=== PATIENT | male | born 1950 | race Caucasian/White ===

== ENCOUNTER 2017-01-22 08:25 | Outpatient (CLI) ==
[2015-11-14 13:04] VITALS: BMI 44.1
== END 2017-01-22 08:26 | disposition short-term general hospital (02) ==
LOC: AMBL 08:25
PROVIDERS: ATTEND Internal Medicine Geriatric Medicine
DX: R06.02 Shortness of breath (principal); R60.0 Localized edema; R05 Cough; I49.3 Ventricular premature depolarization; Z99.81 Dependence on supplemental oxygen

== ENCOUNTER 2017-05-30 05:18 | Outpatient (CLI) ==
[2015-11-14 13:04] VITALS: BMI 44.1
== END 2017-05-30 05:19 | disposition short-term general hospital (02) ==
LOC: AMBL 05:18
PROVIDERS: ATTEND Family Medicine
DX: R07.9 Chest pain, unspecified (principal); R42 Dizziness and giddiness; R06.02 Shortness of breath; R53.1 Weakness; R00.0 Tachycardia, unspecified; I95.9 Hypotension, unspecified; E11.9 Type 2 diabetes mellitus without complications; J44.9 Chronic obstructive pulmonary disease, unspecified; I50.9 Heart failure, unspecified; R40.2411 Glasgow coma scale score 13-15, in the field [EMT or ambulance]

== ENCOUNTER 2017-11-13 13:55 | Emergency (ER) | payer OTHER ==
[2017-11-13] MEDS ORDERED: SODIUM CHLORIDE 1,000 ML IV STA (13:58)
[2017-11-13 14:01] VITALS: BP 143/89; TEMP 97.4; BMI 45.8
--- NOTE | 2017-11-13 14:12 | ED.PDOC ---
General ED Provider: Dr. SUSHMA JACOB-ER Chief Complaint: Altered Mental Status Stated Complaint: family brought in for eval of possible cva---unknown last normal--had dysarthric speech and left facial droop and would not move left side Time Seen by Physician: 13:55 Mode of Arrival: Wheelchair Information Source: Family Exam Limitations: No limitations Primary Care Provider: EDISON MCDERMOTT Nursing and Triage Documentation Reviewed and Agree: Yes Does patient meet sepsis criteria?: No System Inflammatory Response Syndrome: Not Applicable Sepsis Protocol: For patient's 13 years and over: Temp is 96.8 and below OR 101 and greater Pulse >90 BPM Resp >20/minute Acutely Altered Mental Status Are patient's symptoms suggestive of a new infection, such as: -Pneumonia -Skin, Soft Tissue -Endocarditis -UTI -Bone, Joint Infection -Implantable Device -Acute Abdominal Infection -Wound Infection -Meningitis -Blood Stream Catheter Infection -Unknown Neurological Complaint Exam - Neurological Deficit Complaint/Exam Patient Complains of: Reports: Muscle weakness Symptom Onset Unknown: Yes Onset: Gradual Symptoms Are: Still present Initial Severity: Mild Current Severity: Moderate Location: Reports: Facial, LUE, LLE Character: Reports: Motor weakness, Paralysis, Sensory loss Aggravating: Reports: None Associated Signs and Symptoms: Reports: Responsiveness Related History: Reports: Anticoagulant therapy (asa and plavix) CVA Risk Factors: Reports: Diabetes, Hypertension SDH Risk Factors: Reports: Anticoagulant use Related Surgical History: Reports: Pacemaker Signs of Trauma: No Reasons for not prescribing IV t-PA: Medical contraindication (unknown last time normal) Differential Diagnoses: CVA, TIA, Intracranial Bleed Quality Indicator For Non-Traumatic Chest Pain/Syncope: EKG Performed Review of Systems - Review Of Systems Constitutional: Reports: No symptoms Eyes: Reports: No symptoms Ears, Nose, Mouth, Throat: Reports: No symptoms Respiratory: Reports: No symptoms Cardiac: Reports: No symptoms GI: Reports: No symptoms : Reports: No symptoms Musculoskeletal: Reports: No symptoms Skin: Reports: No symptoms Neurological: Reports: Cognitive dysfunction, Weakness Endocrine: Reports: No symptoms Hematologic/Lymphatic: Reports: No symptoms All Other Systems: Reviewed and Negative Past Medical History - Past Medical History Previously Healthy: No Endocrine: Reports: DM 2 Cardiovascular: Reports: CAD, Hypertension Respiratory: Reports: None Hematological: Reports: None Gastrointestinal: Reports: None Genitourinary: Reports: None Neuro/Psych: Reports: None Musculoskeletal: Reports: None Cancer: Reports: None - Surgical History General Surgical History: Reports: None, Pacemaker - Family History Family History: Reports: None - Social History Smoking Status: Never smoker Hx Substance Use: No Alcohol Screening: None Physical Exam - Physical Exam Appearance: Well-appearing Eyes: BARBARA ENT: Ears normal, Nose normal, Oropharynx normal Neck: Supple Respiratory: Airway patent, Breath sounds clear, Breath sounds equal, Respirations nonlabored Cardiovascular: RRR GI/: Soft, Nontender, No masses, Bowel sounds normal, No Organomegaly Musculoskeletal: Normal strength, ROM intact, No edema, No calf tenderness Skin: Warm, Dry, Normal color Neurological: Sensation intact, Motor intact, Reflexes intact, Cranial nerves intact, Alert, Oriented Psychiatric: Affect appropriate Interpretation - Radiology Interpretation Radiology Interpretation By: Radiologist Radiology Results: Positive Exam Interpreted: CT Scan - EKG Interpretation Time of EKG #1: 14:14 Rate: Normal Rhythm: Other Ectopy: None [place]: NL ST Segment: Normal Interpretation: fiordaliza segundo Physician Notification - Case Discussed Physician Notified: dr [email or web address] Time of Notification: 15:15 Critical Care Note - Critical Care Note Total Time (mins): 30 Course - Course Hematology/Chemistry: 11/13/17 14:10 11/13/17 14:10 Orders, Labs, Meds: Lab Review 11/13/17 11/13/17 11/13/17 14:10 14:10 14:10 WBC 11.07 H RBC 5.10 Hgb 15.7 Hct 46.4 MCV 91.0 MCH 30.8 MCHC 33.8 RDW Coeff of Valente 13.3 Plt Count 212 Immature Gran % (Auto) 1.3 Neut % (Auto) 64.0 Lymph % (Auto) 21.7 Posey % (Auto) 6.4 Eos % (Auto) 5.4 Baso % (Auto) 1.2 Immature Gran # (Auto) 0.1 Neut # (Auto) 7.1 H Lymph # (Auto) 2.4 Posey # (Auto) 0.7 Eos # (Auto) 0.6 Baso # (Auto) 0.1 PT 9.7 INR 0.97 Sodium 138 Potassium 5.0 Chloride 99 Carbon Dioxide 31 H Anion Gap 13.0 BUN 39 H Creatinine 1.88 H Estimated GFR (MDRD) 36.00 BUN/Creatinine Ratio 20.74 Glucose 215 H Calcium 9.7 Total Bilirubin 0.8 AST 35 ALT 47 Alkaline Phosphatase 109 Total Creatine Kinase 90 Troponin I < 0.012 Total Protein 8.3 H Albumin 4.6 Globulin 3.7 Albumin/Globulin Ratio 1.24 Orders Category Date Time Status EKG-(ED ONLY) Stat CARDIO 11/13/17 13:57 Completed TRANSFER TO OUTSIDE FACILITY .TO [facility] 11/13/17 14:45 Active ([place], [place]) WRITE TRANSFER/SBAR NOTE ONCE CARE 11/13/17 14:45 Active DISCHARGE ASSESSMENT ONCE DISCHARGE 11/13/17 14:45 Active WRITE DISCHARGE NOTE ONCE DISCHARGE 11/13/17 14:45 Active ACCUCHECK (ED) [ED ACCUCHECK ASSESSMENT] .ONCE EMERGENCY 11/13/17 13:57 Active Price Lister [ED PERFORATOR LOADER APPLIED] .ONCE EMERGENCY 11/13/17 13:58 Active ED ACCUCHECK ASSESSMENT .ONCE EMERGENCY 11/13/17 14:02 Active ED IV/MEDIPORT/POWERPORT .ONCE EMERGENCY 11/13/17 13:58 Active CBC W/ AUTO DIFF Stat LAB 11/13/17 14:10 Completed COMPREHENSIVE METABOLIC PANEL Stat LAB 11/13/17 14:10 Completed CREATINE KINASE Stat LAB 11/13/17 14:10 Completed PT WITH INR Stat LAB 11/13/17 14:10 Completed TROPONIN I Stat LAB 11/13/17 14:10 Completed 0.9 % Sodium Chloride [Saline Flush] MEDS 11/13/17 13:58 Ordered 1 syr IVF PRN PRN Sodium Chloride 0.9% [Sodium Chloride] 1,000 ml MEDS 11/13/17 13:58 Active IV 30 mls/hr CT HEAD W/O CONTRAST Stat RADS 11/13/17 13:58 Completed Medications Generic Name Dose Route Start Last Admin Trade Name Freq PRN Reason Stop Dose Admin Sodium Chloride 1,000 mls @ 30 mls/hr 11/13/17 13:58 11/13/17 14:11 Sodium Chloride IV 11/14/17 23:17 30 mls/hr .[id number] STA Administration Sodium Chloride 1 syr 11/13/17 13:58 11/13/17 14:11 Saline Flush IVF 1 syr PRN PRN Administration To flush IV Vital Signs: Temp Pulse Resp BP Pulse Ox 11/13/17 13:55 97.4 F L 75 20 143/89 H 94 L Departure - Departure Time of Disposition: 14:44 Disposition: TSF SHORT-TRM HOSP Discharge Problem: Altered mental status Instructions: Stroke (DC) Condition: Stable Pt referred to PMD for follow-up: Yes IPMP verified?: No Allergies/Adverse Reactions: Allergies Penicillins Adverse Reaction (Verified 11/13/17 14:02) Home Medications: Ambulatory Orders Insulin Glargine,Hum.rec.anlog [Lantus] 50 unit SQ BEDTIME vial 11/21/14 Insulin Lispro [Humalog] 6 unit SQ TID with meals vial 11/21/14 Nifedipine [Nifedical Xl] 60 mg PO DAILY 10/27/15 Amiodarone HCl [Cordarone] 200 mg PO Q8HR 11/13/17 Aspirin [Aspirin Chewable] 81 mg PO DAILYWM 11/13/17 Atorvastatin Calcium [Lipitor] 20 mg PO BEDTIME 11/13/17 Carvedilol [Coreg] 6.25 mg PO BIDWM 11/13/17 Clopidogrel Bisulfate [Plavix] 75 mg PO DAILY 11/13/17 Spironolactone [Aldactone] 50 mg PO DAILY 11/13/17 Torsemide [Demadex] 100 mg PO DAILY 11/13/17 Transfer Form Completed: Yes Disposition Discussed With: Patient, Family
--- NOTE | 2017-11-13 14:23 | CT ---
EXAM: CT of the head without contrast. HISTORY: Speech disturbance. COMPARISON: None. TECHNIQUE: Contiguous axial images at 5 mm intervals were obtained from the base of the skull to the vertex of the calvarium. No contrast was given. FINDINGS: The CSF containing spaces are normal in size and position. There are no extraaxial fluid collections. There is no evidence of an acute intracranial hemorrhage. There are no masses or mass effect. There is a small peripheral hypodensity in the right frontal lobe which has appearance of sub acute or chronic ischemic infarct. There is also a oval shaped hypodensity in the posterior fossa on the right which has appearance of ischemic infarct. Caceres-white differentiation is normal. The verte bral basilar artery appears dilated measuring up to 6 mm. The osseous and extracranial soft tissues are normal. IMPRESSION: 1. No vascular territory infarcts are identified. No acute intracranial hemorrhage. 2. Hypodensities in the right frontal lobe and right posterior fossa have the appearance of a subacu te or chronic ischemic infarcts. These are small areas of hypodensity. Consider follow-up MRI and/o r CT. 3. Enlarged vertebral basilar artery. These findings were faxed to the humerus department on 11/13/2017 at 2:18 p.m.
== END 2017-11-13 15:45 | disposition short-term general hospital (02) ==
LOC: ED 13:55
DX: R41.82 Altered mental status, unspecified (principal); R29.810 Facial weakness; R47.1 Dysarthria and anarthria; E11.9 Type 2 diabetes mellitus without complications; I10 Essential (primary) hypertension; R53.1 Weakness; I25.10 Atherosclerotic heart disease of native coronary artery without angina pectoris; Z95.0 Presence of cardiac pacemaker; Z79.4 Long term (current) use of insulin; Z79.899 Other long term (current) drug therapy
CPT/HCPCS: 36415; 80053; 82550; 82962; 84484; 85025; 85610; 93005; 93010; 99285

== ENCOUNTER 2018-03-29 14:03 | Inpatient (IN) | payer OTHER ==
[2018-03-29 14:59] VITALS: BMI 39.7
[2018-03-29] MEDS ORDERED: ELIQUIS PO SCH (15:30)
[2018-03-29] MEDS ORDERED: LEVETIRACETAM 250 MG PO SCH ×2 (15:30→21:00)
--- NOTE | 2018-03-29 16:16 | RS.OTINEVL ---
Subjective - Patient information Date of Evaluation: 03/29/18 Date of Arrival on Unit: 03/29/18 Admitted From:: Facility Transfer Usual Living Arrangement: Alone Living Arrangement Comments: Pt reports he lives in the basement of his house where he does not have any steps to enter his home. He reports it is setup like an apartment in the basement. He has a shower with a tub/shower. Medical History: CVA/TIA Medical History Comments:: Large CVA with M2 occlusion.Seizure disorder. thrombectomy, slow processing, decreased ambulation, Cardiac dysrhythmia, CHF, CAD, DMII, HTN, obesity, O2 @ night, sleep apnea, Left Rotator cuff surgery Surgical History Comments:: Left rotator cuff surgery, thrombectomy, Subjective Information/ Patient Comments:: Pt reports no pain. Pt reports he does not have seizures. Pt reports he needs a walker. - Level of function Prior to this admission, the patient could do the following:: Independent Selfcare, Independent Ambulation Abilities prior to this admission: Pt reports he completed his self care before he fell at his home. Now he cannot take care of himself. Current Level of Function: Independent Current Equipment Used at Home: STRAIGHT CANE , NEBULIZER, OXYGEN, GLUCOMETER, SHOWER CHAIR Pain Assessment - Pain Pain Score: 0 Interventions - Objective Patient Orientation: Person, Place, Situation Current Interventions: Oxygen Observation: Pt appears tired. Pt is weak and not steady on his feet. Pt would benefit from OT. Interventions - ROM Right Upper Extremity AROM: WFL's Left Upper Extremity AROM: Slight limitation - Strength Right Upper Extremity Strength: Mild Weakness Left Upper Extremity Strength: Mild Weakness - Sensation Right Upper Extremity Sensation: Intact/Normal Left Upper Extremity Sensation: Intact/Normal Balance - Sitting Balance Static Sitting Balance: Fair Dynamic Sitting Balance: Fair - Standing Balance Static Standing Balance: Poor Dynamic Standing Balance: Poor ADL Skills - Self Feeding Self Feeding: Independent - Grooming Grooming: Min Assist - Bathing Bathing UE: Not Tested Bathing LE: Not Tested - Dressing Dressing UE: Min Assist Dressing LE: Max Assist - Toilet Management Toileting Management: Mod Assist Functional Mobility - Transfers Sit to Stand: CGA Stand to Sit: CGA Stand Pivot Transfers: CGA - Ambulation Weight Bearing Status: FWB Assistive Device Used: Rolling Walker Assistance needed with Ambulation: CGA - Safety Awareness Safety Awareness: Good IZZY INDEX SCORE: 49 Additional Treatment Performed - Additional units charged ADL: 15 - Time with patient Length of Evaluation: 17 Total treatment time: 38 Activities Would you be interested in leaving your room for activities?: No Would you enjoy group activities?: No Do you have difficulty with your vision?: Yes Patient Interests:: Watching Television Patient Education Patient Education: Education of diagnosis, Home Exercise Program, Home Safety, Education of Plan of Care Teaching Recipient: Patient Teaching Methods: Teach Back Method Used, Discussion Assessment Problem List:: Decreased level of function, Decreased safety/Risk of falls, Weakness Rehab Potential: Good Candidate for Swing Bed for Therapy Services?: yes Evaluation Complexity: HISTORY: Medium, EXAM OF BODY SYSTEMS: Medium, CLINICAL DECISION MAKING: Medium Short Term Goals - Goals GOAL 1: Pt to increase dyn. std. balance to Fair- Goal to be met by: 04/03/18 GOAL 2: Pt to be (I) with LB dressing. Goal to be met by: 04/03/18 GOAL 3: Pt to increase BUE strength is 4/5. Goal to be met by: 04/03/18 Alf Goals GOAL 1: Pt to increase dyn. std. balance G- Goal to be met by: 04/07/18 GOAL 2: Pt to be (I) with self cares. Goal to be met by: 04/07/18 GOAL 3: Pt to increase BUE strength is 4+/5. Goal to be met by: 04/07/18 Plan Plan of Care: Therapeutic EX, Neuromuscular Re-Educ, Therapeutic Activity, Self- Care/Home Management Frequency of Treatment: 1-2 X day, as tolerated Duration of Treatment: 1 Week Anticipated Discharge Destination: Home Treatment Diagnosis (ICD 10 Codes): M62.81 Muscle weakness Has the Physician been added for Co-signature?: Yes
--- NOTE | 2018-03-29 16:28 | RS.PTINEVL ---
Subjective - Patient information Date of Evaluation: 03/29/18 Date of Arrival on Unit: 03/29/18 Admitted From:: Facility Transfer (transferred from [facility] for swing bed) Diagnosis: acute on chronic CHF, pneumonia, ataxia Usual Living Arrangement: With Spouse Living Arrangement Comments: Lives with , pt has own basement apt? Home Environment: Apartment Medical History: Hypertension, CVA/TIA (11/2017), Diabetes, CHF Medical History Comments:: CAD, obesity, sleep apnea, cardiac dysrhythmia, seizure disorder LATEX ALLERGY?: No Surgical History Comments:: L RTR, heart cath, thrombectomy, Medications: see chart Subjective Information/ Patient Comments:: pt states that he is a little tired from being transferred from [facility] today. States he is feeling pretty good. - Level of function Prior to this admission, the patient could do the following:: Independent ADL's , Independent Ambulation Abilities prior to this admission: amb independently with straight cane Current Level of Function: Partially Dependent Current Equipment Used at Home: STRAIGHT CANE , NEBULIZER, OXYGEN, GLUCOMETER, SHOWER CHAIR Interventions - Objective Patient Orientation: Person, Place Current Interventions: Oxygen (2 liters) Range of Motion - ROM Right Upper Extremity AROM: WFL's Left Upper Extremity AROM: Slight limitation (shld flex limited due to previous rotator cuff repair) Right Lower Extremity AROM: WFL's Left Lower Extremity AROM: WFL's Muscle Strength - Muscle Strength Right Upper Extremity Strength: Mild Weakness (grossly 4/5) Left Upper Extremity Strength: Mild Weakness (shld flex 3/5, elbow flex/ext 4/5) Right Lower Extremity Strength: Mild Weakness (hip flex 3+/5, knee flex/ext 4/5 , ankle DF/PF 4/5) Left Lower Extremity Strength: Mild Weakness (hip flex 4/5, knee flex/ext 4+/5, ankle DF/PF 4+/5) Sensation - Sensation Right Upper Extremity Sensation: Intact/Normal Left Upper Extremity Sensation: Intact/Normal Right Lower Extremity Sensation: Intact/Normal Left Lower Extremity Sensation: Intact/Normal Palpation Palpation Findings: None/Normal Balance - Sitting Balance and Reactions Static Sitting Balance: Good Dynamic Sitting Balance: Good - Standing Balance and Reactions Static Standing Balance: Poor Dynamic Standing Balance: Poor Standing Equilibrium Reactions: Delayed Left, Delayed Right Standing Protective Reactions: Delayed Left, Delayed Right Functional Mobility - Bed Mobility Comments:: pt seen sitting up in chair did not wish to go back to bed. - Transfers Sit to Stand: Min Assist Stand to Sit: CGA - Safety Awareness Safety Awareness: Fair IZZY INDEX SCORE: 49 Ambulation - Ambulation Assistive Device Used: Rolling Walker Orthotic/Prosthetic Device: No Distance: 30ft Assistance needed with Ambulation: CGA Gait Deviations: Forward posture, Short stride Ambulation Comments: pt amb with decreased step length, flexed posture, increased lat sway, pt with slight ataxic gait pattern. Factors Affecting Ambulation: Decreased Balance, Weakness, Decreased Safety, Cognitive Status, Limited Endurance Treatment time - Units charged Gait trainin - Time with patient Length of Evaluation: 17 Total treatment time: 28 Patient Education - Education Patient Education: Activity Modification, Education of Plan of Care Teaching Recipient: Patient Teaching Methods: Discussion Comments: discussion regarding POC and safety with transfers and amb. Assessment - Assessment Problem List:: Decreased level of function, Requires training/education, Decreased safety/Risk of falls, Weakness, Cognitive status limits abilities Rehab Potential: Good Further Therapy Indicated?: Yes Candidate for Swing Bed for Therapy Services?: pt is a swing bed patient Evaluation Complexity: HISTORY: Medium (CHF, CVA, DM, HTN, obesity), EXAM OF BODY SYSTEMS: Medium (strength, balance, posture, gait.), CLINICAL PRESENTATION : Medium (evolving), CLINICAL DECISION MAKING: Medium Short Term Goals GOAL #1: pt demonstrate independence with rolling and scooting up in bed. Goal to be met by: 04/04/18 GOAL #2: Transfer sup to/from sit CGA Goal to be met by: 04/04/18 GOAL #3: Transfer sit to/from stand CGA Goal to be met by: 04/04/18 GOAL #4: pt amb with rwx 75 ft with CGA with O2 with no LOB Goal to be met by: 04/04/18 GOAL #5: Improve BLE strength 4- to 4/5 Goal to be met by: 04/04/18 Correction Goals GOAL #1: Transfer sup to/from sit to/from stand SBA Goal to be met by: 04/07/18 GOAL #2: pt amb with rwx functional household distances with SBA with no LOB Goal to be met by: 04/07/18 GOAL #3: Demonstrate improved dyn stand balance fair+ Goal to be met by: 02/01/19 Plan Plan of Care: Therapeutic EX, Therapeutic Activity Other:: gait training Frequency of Treatment: 1-2 X day, as tolerated Duration of Treatment: 10 days Anticipated Discharge Destination: Home Treatment Diagnosis (ICD 10 Codes): R 26.81 balance impairment. R26.o ataxic gait. M62.81 weakness Has the Physician been added for Co-signature?: Yes
[2018-03-29] MEDS: HUMULIN R SUBCUT SCH (17:26)
[2018-03-29] MEDS: COREG PO SCH (17:26)
[2018-03-29] MEDS: KEPPRA PO SCH (17:26)
[2018-03-29] MEDS ORDERED: HUMALOG SUBCUT SCH (17:30)
[2018-03-29] MEDS: ELIQUIS PO SCH (20:55)
[2018-03-29] MEDS: LEVEMIR SUBCUT SCH (20:56)
[2018-03-29] MEDS: LIPITOR PO SCH (20:56)
[2018-03-29] MEDS ORDERED: LIPITOR PO SCH (21:00)
[2018-03-30] MEDS: KEPPRA PO SCH ×2 (04:54→16:41)
[2018-03-30] MEDS: SYNTHROID PO SCH (06:05)
[2018-03-30] MEDS: PROTONIX PO SCH (06:05)
[2018-03-30] MEDS: PROCARDIA XL PO SCH (09:47)
[2018-03-30] MEDS: ALDACTONE PO SCH (09:47)
[2018-03-30] MEDS: ZYLOPRIM PO SCH (09:48)
[2018-03-30] MEDS: COZAAR PO SCH (09:48)
[2018-03-30] MEDS: LASIX TAB PO SCH (09:48)
[2018-03-30] MEDS: HUMULIN R SUBCUT SCH ×3 (09:49→16:55)
[2018-03-30] MEDS: COREG PO SCH ×2 (09:49→16:41)
[2018-03-30] MEDS: CORDARONE PO SCH (09:49)
[2018-03-30] MEDS: NON-FORMULARY MEDICATION (Calcitriol [Calcitriol] 0.25 MCG) PO SCH (09:52)
[2018-03-30] MEDS: ELIQUIS PO SCH ×2 (10:31→21:03)
[2018-03-30] MEDS: LEVEMIR SUBCUT SCH (21:03)
[2018-03-30] MEDS: LIPITOR PO SCH (21:03)
[2018-03-31] MEDS: SYNTHROID PO SCH (05:49)
[2018-03-31] MEDS: PROTONIX PO SCH (05:49)
[2018-03-31] MEDS: KEPPRA PO SCH ×2 (05:49→16:41)
[2018-03-31] MEDS: ALDACTONE PO SCH (08:30)
[2018-03-31] MEDS: CORDARONE PO SCH (08:30)
[2018-03-31] MEDS: LASIX TAB PO SCH (08:30)
[2018-03-31] MEDS: PROCARDIA XL PO SCH (08:31)
[2018-03-31] MEDS: COREG PO SCH ×2 (08:31→16:41)
[2018-03-31] MEDS: COZAAR PO SCH (08:31)
[2018-03-31] MEDS: ZYLOPRIM PO SCH (08:31)
[2018-03-31] MEDS: ELIQUIS PO SCH ×2 (08:33→21:08)
[2018-03-31] MEDS: HUMULIN R SUBCUT SCH ×3 (08:36→16:39)
[2018-03-31] MEDS: NON-FORMULARY MEDICATION (Calcitriol [Calcitriol] 0.25 MCG) PO SCH (08:37)
[2018-03-31] MEDS ORDERED: NYSTOP POWDER TP ONE (10:00)
[2018-03-31] MEDS: NYSTOP POWDER TP SCH ×2 (10:09→21:10)
--- NOTE | 2018-03-31 13:35 | PN ---
DATE OF SERVICE: 03/30/18 CHIEF COMPLAINT: "Weakness" BRIEF HISTORY OF PRESENT ILLNESS: He presented to [facility] 03/23/18 with significant weakness. The week prior he had definite symptoms and findings for a UTI (he had been to [facility] ER before that) and his organism was difficult to treat. He was therefore treated for several days with Rocephin and transitioned cautiously to Bactrim and in fact, had to have his Amiodarone reduced in consultation with Dr. Lee at [facility]. Despite that, he continued to become more dizzy, weak, short of breath and even fell 03/20/18 without injury. In the ED he had an elevated BNP and a chest x-ray equaled failure. He was given Lasix, admitted and while there was seen by cardiology and nephrology. With a general diuresis, gentle fluids and stabilization of his cardiac and kidney issues. His echocardiogram has many issues that are not good. His gait is poor. He was seen by Dr. Bailey and there is some concern that he was ataxic or somewhat too dizzy. He did not feel like changes seen on CT scan represented a stroke. At the end of the stay it was felt he was not well enough with his gait or his general stability to go home and he was admitted here. INTERVAL COURSE: He slept well last night. He denies any pain. He met with therapy today and did some walking. He said he didn't walk very far. He is eating without diarrhea. He is drinking and voiding without dysuria. MEDICINES: Reviewed. REVIEW OF SYSTEMS: GENERAL: Fatigues easily and sleeping okay. CHEST: Denies cough or wheeze despite CT scan at [facility] showing pneumonia. CARDIOVASCULAR: Denies palpitations, chest pain. He has his usual ankle edema. GI: Denies nausea, vomiting and diarrhea. PHYSICAL EXAMINATION: V/S: Temperature 97.6, pulse 75, respiratory rate 18, BP 127/84. GENERAL: No obvious distress. Obese. INTEGUMENT: Hyperpigmentation lower extremities, no open sores. Eyegrounds are pink. Mucous membranes are moist. NECK: No mass or thyroid. CHEST: Diminished, obese but clear. CARDIOVASCULAR: Regular, regular distant with edema of one out of four ankle level. GI: Obese, nontender. NEUROLOGIC: Difficult choosing words. His speech is slightly slurred. PSYCHIATRIC: Oriented times three. Flat affect. ASSESSMENT: 1. Dizziness - improved and was related to CHF and others. 2. Fatigue - acute and chronic improved. 3. Shortness of breath - acute and chronic, improved. 4. Diuresis - Rocephin for "pneumonia". 5. Gait decline - acute on chronic. 6. Fall 03/20/18 and fall risk. 7. CHF - systolic acute and chronic. 8. Dilated cardiomyopathy. 9. Elevated liver enzymes - felt to possibly due to Amiodarone with dose reduction improved. 10. UTI - Enterobacter and recently treated Rocephin and Bactrim. 11. CT of the chest - pneumonia - Rocephin treated. 12. Left frontal lobe changes - neuro did not think this represented a recent stroke. 13. Ataxia related to the above - resolved or improved. 14. Constipation - intermittent. 15. Hypoglycemia - improved with insulin reduction. PLAN: 1. Medications reviewed - same. 2. Laboratories reviewed - weekly on Tuesday CBC, CMP. 3. Imaging - none planned for now. 4. Consults - none. 5. Diet - same. 6. Fluids - oral and encouraged. 7. Activity - encouraged to increase with PT supervision and help. 8. Code Status - full. 9. Discharge planning - he expects from here to go home. ZULEMA
[2018-03-31] MEDS: LIPITOR PO SCH (21:10)
[2018-03-31] MEDS: LEVEMIR SUBCUT SCH (21:12)
[2018-04-01] MEDS: KEPPRA PO SCH ×2 (03:53→15:57)
[2018-04-01] MEDS: PROTONIX PO SCH (05:31)
[2018-04-01] MEDS: SYNTHROID PO SCH (05:31)
[2018-04-01] MEDS: COREG PO SCH ×2 (08:34→17:09)
[2018-04-01] MEDS: LASIX TAB PO SCH (08:34)
[2018-04-01] MEDS: ZYLOPRIM PO SCH (08:34)
[2018-04-01] MEDS: COZAAR PO SCH (08:35)
[2018-04-01] MEDS: CORDARONE PO SCH (08:35)
[2018-04-01] MEDS: ALDACTONE PO SCH (08:35)
[2018-04-01] MEDS: PROCARDIA XL PO SCH (08:35)
[2018-04-01] MEDS: NON-FORMULARY MEDICATION (Calcitriol [Calcitriol] 0.25 MCG) PO SCH (08:36)
[2018-04-01] MEDS: NYSTOP POWDER TP SCH ×2 (08:36→20:26)
[2018-04-01] MEDS: ELIQUIS PO SCH ×2 (08:40→20:27)
[2018-04-01] MEDS: HUMULIN R SUBCUT SCH ×3 (09:33→17:09)
[2018-04-01] MEDS: LIPITOR PO SCH (20:24)
[2018-04-01] MEDS: LEVEMIR SUBCUT SCH (20:25)
[2018-04-02] MEDS: KEPPRA PO SCH ×2 (06:00→16:38)
[2018-04-02] MEDS: PROTONIX PO SCH (06:00)
[2018-04-02] MEDS: SYNTHROID PO SCH (06:00)
[2018-04-02] MEDS: ZYLOPRIM PO SCH (09:00)
[2018-04-02] MEDS: LASIX TAB PO SCH (09:00)
[2018-04-02] MEDS: COZAAR PO SCH (09:00)
[2018-04-02] MEDS: PROCARDIA XL PO SCH (09:01)
[2018-04-02] MEDS: COREG PO SCH ×2 (09:01→16:39)
[2018-04-02] MEDS: ALDACTONE PO SCH (09:01)
[2018-04-02] MEDS: NON-FORMULARY MEDICATION (Calcitriol [Calcitriol] 0.25 MCG) PO SCH (09:02)
[2018-04-02] MEDS: CORDARONE PO SCH (09:02)
[2018-04-02] MEDS: NYSTOP POWDER TP SCH ×2 (09:03→22:04)
[2018-04-02] MEDS: ELIQUIS PO SCH ×2 (09:03→21:07)
[2018-04-02] MEDS: HUMULIN R SUBCUT SCH ×4 (11:34→17:38)
[2018-04-02] MEDS: LIPITOR PO SCH (21:07)
[2018-04-02] MEDS: LEVEMIR SUBCUT SCH (22:55)
[2018-04-03] MEDS: KEPPRA PO SCH ×2 (05:40→16:30)
[2018-04-03] MEDS: PROTONIX PO SCH (05:41)
[2018-04-03] MEDS: SYNTHROID PO SCH (05:41)
[2018-04-03] MEDS: LASIX TAB PO SCH (08:11)
[2018-04-03] MEDS: ZYLOPRIM PO SCH (08:11)
[2018-04-03] MEDS: COREG PO SCH ×2 (08:11→16:31)
[2018-04-03] MEDS: COZAAR PO SCH (08:11)
[2018-04-03] MEDS: PROCARDIA XL PO SCH (08:11)
[2018-04-03] MEDS: ALDACTONE PO SCH (08:11)
[2018-04-03] MEDS: HUMULIN R SUBCUT SCH ×3 (08:12→17:50)
[2018-04-03] MEDS: CORDARONE PO SCH (08:12)
[2018-04-03] MEDS: NON-FORMULARY MEDICATION (Calcitriol [Calcitriol] 0.25 MCG) PO SCH (08:13)
[2018-04-03] MEDS: NYSTOP POWDER TP SCH ×2 (08:13→21:14)
[2018-04-03] MEDS: ELIQUIS PO SCH ×2 (08:14→21:13)
[2018-04-03] MEDS: LIPITOR PO SCH (21:13)
[2018-04-03] MEDS: LEVEMIR SUBCUT SCH (21:15)
[2018-04-04] MEDS: LASIX TAB PO SCH (05:34)
[2018-04-04] MEDS: PROTONIX PO SCH (05:34)
[2018-04-04] MEDS: KEPPRA PO SCH ×2 (05:35→16:29)
[2018-04-04] MEDS: SYNTHROID PO SCH (05:35)
--- NOTE | 2018-04-04 09:47 | PN ---
DATE OF SERVICE: 04/03/18 CHIEF COMPLAINT: "Weakness" BRIEF HISTORY OF PRESENT ILLNESS: He presented to [facility] 03/23/18 with significant weakness. The week prior he had definite symptoms and findings for a UTI (he had been to [facility] ER before that) and his organism was difficult to treat. He was therefore treated for several days with Rocephin and transitioned cautiously to Bactrim and in fact, had to have his Amiodarone reduced in consultation with Dr. Lee at [place]. Despite that, he continued to become more dizzy, weak, short of breath and even fell 03/20/18 without injury. In the ED he had an elevated BNP and a chest x-ray equaled failure. He was given Lasix, admitted and while there was seen by cardiology and nephrology. With a general diuresis, gentle fluids and stabilization of his cardiac and kidney issues. His echocardiogram has many issues that are not good. His gait is poor. He was seen by Dr. Bailey and there is some concern that he was ataxic or somewhat too dizzy. He did not feel like changes seen on CT scan represented a stroke. At the end of the stay it was felt he was not well enough with his gait or his general stability to go home and he was admitted here. INTERVAL COURSE: He is sleeping well. He denies significant pain. He is walking with therapy. He says he is feeling stronger. He is eating without diarrhea. He is stooling. He is drinking and voiding without dysuria. MEDICINES: Reviewed. REVIEW OF SYSTEMS: GENERAL: Still has some fatigue through the course of the day in general. CHEST: Denies cough or wheeze and continues with antibiotics for CT findings at [facility] of pneumonia. CARDIOVASCULAR: Denies palpitations, chest pain. He has his usual ankle edema. GI: Denies nausea, vomiting and diarrhea. PHYSICAL EXAMINATION: V/S: Temperature 97.9, pulse 78, respirations 16, BP 126/69. GENERAL: No obvious distress. Obese. INTEGUMENT: Hyperpigmentation lower extremities, no open sores. Eyegrounds are pink. Mucous membranes are moist. NECK: No mass or thyroid. CHEST: Diminished, obese but clear. CARDIOVASCULAR: Regular, regular distant with edema of one out of four ankle level. GI: Obese, nontender. NEUROLOGIC: Difficult choosing words. His speech is slightly slurred. PSYCHIATRIC: Oriented times three. Flat affect. MOST RECENT LABS: White count 8.6, hemoglobin 11.4, platelets 272. Chemistries: BUN 27, creatinine 1.27 and sugar 118 and otherwise unremarkable. ASSESSMENT: 1. Dizziness - improved and was related to CHF and others. 2. Fatigue - acute and chronic improved. 3. Shortness of breath - acute and chronic, improved. 4. Diuresis - Rocephin for "pneumonia". 5. Gait decline - acute on chronic. 6. Fall 03/20/18 and fall risk. 7. CHF - systolic acute and chronic. 8. Dilated cardiomyopathy. 9. Elevated liver enzymes - felt to possibly due to Amiodarone with dose reduction improved. 10. UTI - Enterobacter and recently treated Rocephin and Bactrim. 11. CT of the chest - pneumonia - Rocephin treated. 12. Left frontal lobe changes - neuro did not think this represented a recent stroke. 13. Ataxia related to the above - resolved or improved. 14. Constipation - intermittent. 15. Hypoglycemia - improved with insulin reduction. PLAN: 1. Medicines reviewed - same. 2. Laboratories reviewed - weekly on Wednesdays. 3. Imaging - none planned for now. 4. Consults - none. 5. Diet - same. 6. Fluids - oral and encouraged. 7. Activity - continues to work with therapy and encourage. 8. Code status - full. 9. Discharge planning - He expects to go from here home. [facility]
[2018-04-04] MEDS: HUMULIN R SUBCUT SCH ×3 (09:49→16:31)
[2018-04-04] MEDS: ALDACTONE PO SCH (09:50)
[2018-04-04] MEDS: CORDARONE PO SCH (09:51)
[2018-04-04] MEDS: NON-FORMULARY MEDICATION (Calcitriol [Calcitriol] 0.25 MCG) PO SCH (09:51)
[2018-04-04] MEDS: COREG PO SCH ×3 (09:51→16:30)
[2018-04-04] MEDS: COZAAR PO SCH (09:52)
[2018-04-04] MEDS: PROCARDIA XL PO SCH (09:52)
[2018-04-04] MEDS: ZYLOPRIM PO SCH (09:53)
[2018-04-04] MEDS: NYSTOP POWDER TP SCH ×2 (09:53→20:44)
[2018-04-04] MEDS: ELIQUIS PO SCH ×2 (09:58→20:44)
[2018-04-04] MEDS: LIPITOR PO SCH (20:44)
[2018-04-04] MEDS: LEVEMIR SUBCUT SCH (20:45)
[2018-04-05] MEDS: KEPPRA PO SCH ×2 (04:51→16:07)
[2018-04-05] MEDS: PROTONIX PO SCH (05:42)
[2018-04-05] MEDS: LASIX TAB PO SCH (05:42)
[2018-04-05] MEDS: SYNTHROID PO SCH (05:42)
[2018-04-05] MEDS: HUMULIN R SUBCUT SCH ×3 (09:45→16:57)
[2018-04-05] MEDS: ALDACTONE PO SCH (09:48)
[2018-04-05] MEDS: CORDARONE PO SCH (09:49)
[2018-04-05] MEDS: COREG PO SCH ×2 (09:49→16:56)
[2018-04-05] MEDS: NON-FORMULARY MEDICATION (Calcitriol [Calcitriol] 0.25 MCG) PO SCH (09:49)
[2018-04-05] MEDS: COZAAR PO SCH (09:49)
[2018-04-05] MEDS: NYSTOP POWDER TP SCH ×2 (09:50→21:38)
[2018-04-05] MEDS: PROCARDIA XL PO SCH (09:50)
[2018-04-05] MEDS: ZYLOPRIM PO SCH (09:51)
[2018-04-05] MEDS: ELIQUIS PO SCH ×2 (09:53→21:29)
[2018-04-05] MEDS: LIPITOR PO SCH (21:28)
[2018-04-05] MEDS: LEVEMIR SUBCUT SCH (21:38)
[2018-04-06] MEDS: KEPPRA PO SCH ×2 (04:55→15:56)
[2018-04-06] MEDS: SYNTHROID PO SCH (05:53)
[2018-04-06] MEDS: LASIX TAB PO SCH (05:53)
[2018-04-06] MEDS: PROTONIX PO SCH (05:54)
[2018-04-06] MEDS: HUMULIN R SUBCUT SCH ×3 (08:35→18:04)
[2018-04-06] MEDS: COREG PO SCH ×2 (08:36→18:03)
[2018-04-06] MEDS: PROCARDIA XL PO SCH (08:36)
[2018-04-06] MEDS: ALDACTONE PO SCH (08:36)
[2018-04-06] MEDS: COZAAR PO SCH (08:37)
[2018-04-06] MEDS: ZYLOPRIM PO SCH (08:37)
[2018-04-06] MEDS: NON-FORMULARY MEDICATION (Calcitriol [Calcitriol] 0.25 MCG) PO SCH (08:38)
[2018-04-06] MEDS: CORDARONE PO SCH (08:38)
[2018-04-06] MEDS: NYSTOP POWDER TP SCH ×2 (08:39→21:31)
[2018-04-06] MEDS: ELIQUIS PO SCH ×2 (08:42→20:24)
--- NOTE | 2018-04-06 12:39 | PN ---
DATE OF SERVICE: 04/04/18 CHIEF COMPLAINT: "Weakness" BRIEF HISTORY OF PRESENT ILLNESS: He presented to [facility] 03/23/18 with significant weakness. The week prior he had definite symptoms and findings for a UTI (he had been to [facility] ER before that) and his organism was difficult to treat. He was therefore treated for several days with Rocephin and transitioned cautiously to Bactrim and in fact, had to have his Amiodarone reduced in consultation with Dr. Lee at [place]. Despite that, he continued to become more dizzy, weak, short of breath and even fell 03/20/18 without injury. In the ED he had an elevated BNP and a chest x-ray equaled failure. He was given Lasix, admitted and while there was seen by cardiology and nephrology. With a general diuresis, gentle fluids and stabilization of his cardiac and kidney issues. His echocardiogram has many issues that are not good. His gait is poor. He was seen by Dr. Bailey and there is some concern that he was ataxic or somewhat too dizzy. He did not feel like changes seen on CT scan represented a stroke. At the end of the stay it was felt he was not well enough with his gait or his general stability to go home and he was admitted here. INTERVAL COURSE: He did not sleep as well last night, he doesn't have good understanding why. He denied pain. He continued with therapy today; doing some limited walking. He is eating without diarrhea. He is having bowel movements. Drinking and voiding without dysuria. He thinks he empties completely. His daughter says his speech quality comes and goes. He denies any choking. MEDICINES: Reviewed. REVIEW OF SYSTEMS: GENERAL: Fatigues easily but no fever. CHEST: Denies cough or wheeze. CARDIOVASCULAR: Denies palpitations, chest pain. Usual with legs dependent, mild edema. GI: Denies nausea, vomiting and diarrhea. PHYSICAL EXAMINATION: V/S: Temperature 97.5, pulse 77, respirations 16, BP 95/88. GENERAL: No obvious distress. Obese. INTEGUMENT: Hyperpigmentation lower extremities, no open sores. Eyegrounds are pink. Mucous membranes are moist. NECK: No mass or thyroid. CHEST: Diminished, obese but clear. CARDIOVASCULAR: Regular, regular distant with edema of one out of four ankle level. GI: Obese, nontender. NEUROLOGIC: Difficult choosing words. His speech is slightly slurred. PSYCHIATRIC: Oriented times three. Flat affect. LAST LABS: Continued to be 04/02: white count 8.6, hemoglobin 11.4. Chemistries unremarkable. Note: Potassium 4.58, BUN 27, creatinine 1.27, blood sugar 118. ASSESSMENT 1. Dizziness - improved and was related to CHF and others, improved. 2. Fatigue - acute and chronic and improved. 3. Shortness of breath - acute and chronic, improved. 4. Diuresis - Rocephin for "pneumonia". 5. Gait decline - acute on chronic. 6. Fall 03/20/18 and fall risk. 7. CHF - systolic acute and chronic. 8. Dilated cardiomyopathy. 9. Elevated liver enzymes - felt to possibly due to Amiodarone with dose reduction improved. 10. UTI - Enterobacter and recently treated Rocephin and Bactrim. 11. CT of the chest - pneumonia - Rocephin treated. 12. Left frontal lobe changes - neuro did not think this represented a recent stroke. 13. Ataxia - improving. 14. Constipation - intermittent. 15. Hypoglycemia - improved with insulin reduction. PLANS: 1. Medicines reviewed - same. We will soon be coming up on timeframe to stop the Rocephin. 2. Laboratories - reviewed - continue weekly CBC, CMP/ 3. Imaging - will have repeat chest x-ray toward the end of this week. 4. Consults - none. 5. Diet - same. 6. Fluids- oral encouraged. 7. Activity - continue with therapy supervision and encourage. 8. Code status - full. 9. Discharge planning - plans to go from here to home at 10. I was able to meet with his and daughter. We discussed all of these issues to their satisfaction and note that they have no questions at this point. They were forewarned that I will be out of town until 04/12 and probably will see him tomorrow morning but not after that until I return. Dr. Martino will be covering. [facility]
--- NOTE | 2018-04-06 12:46 | PN ---
DATE OF SERVICE: 04/05/18 CHIEF COMPLAINT: "Weakness" BRIEF HISTORY OF PRESENT ILLNESS: He presented to [facility] 03/23/18 with significant weakness. The week prior he had definite symptoms and findings for a UTI (he had been to [facility] ER before that) and his organism was difficult to treat. He was therefore treated for several days with Rocephin and transitioned cautiously to Bactrim and in fact, had to have his Amiodarone reduced in consultation with Dr. Lee at [place]. Despite that, he continued to become more dizzy, weak, short of breath and even fell 03/20/18 without injury. In the ED he had an elevated BNP and a chest x-ray equaled failure. He was given Lasix, admitted and while there was seen by cardiology and nephrology. With a general diuresis, gentle fluids and stabilization of his cardiac and kidney issues. His echocardiogram has many issues that are not good. His gait is poor. He was seen by Dr. Bailey and there is some concern that he was ataxic or somewhat too dizzy. He did not feel like changes seen on CT scan represented a stroke. At the end of the stay it was felt he was not well enough with his gait or his general stability to go home and he was admitted here. INTERVAL COURSE: He slept well, better than the night before. He denies chest pain, shortness of breath. He is walking a little further, feels a little stronger. He is eating and stooling without diarrhea. He is drinking and voiding without dysuria. He has no cough. MEDICATIONS: Reviewed. He is off Rocephin. REVIEW OF SYSTEMS: GENERAL: Fatigues easily but no fever. CHEST: Denies cough or wheeze. CARDIOVASCULAR: Denies palpitations, chest pain. Usual with legs dependent, mild edema. GI: Denies nausea, vomiting and diarrhea. PHYSICAL EXAMINATION: V/S: Temperature 98.5, pulse 75, respiratory rate 20, BP 116/74. GENERAL: No obvious distress. Obese. INTEGUMENT: Hyperpigmentation lower extremities, no open sores. Eyegrounds are pink. Mucous membranes are moist. NECK: No mass or thyroid. CHEST: Diminished, obese but clear. CARDIOVASCULAR: Regular, regular distant with edema of one out of four ankle level. GI: Obese, nontender. NEUROLOGIC: Difficult choosing words. His speech is slightly slurred. PSYCHIATRIC: Oriented times three. Flat affect. ASSESSMENT 1. Dizziness - improved and was related to CHF and others, improved. 2. Fatigue - acute and chronic and improved. 3. Shortness of breath - acute and chronic, improved. 4. Diuresis - Rocephin for "pneumonia". 5. Gait decline - acute on chronic. 6. Fall 03/20/18 and fall risk. 7. CHF - systolic acute and chronic. 8. Dilated cardiomyopathy. 9. Elevated liver enzymes - felt to possibly due to Amiodarone with dose reduction improved. 10. UTI - Enterobacter and recently treated Rocephin and Bactrim. 11. CT of the chest - pneumonia - Rocephin treated. 12. Left frontal lobe changes - neuro did not think this represented a recent stroke. 13. Ataxia - improving. 14. Constipation - intermittent. 15. Hypoglycemia - improved with insulin reduction. DISCUSSION: Overall, he continues a slow progress of improvement. He has no signs of pneumonia. PLANS: 1. Medicines reviewed - same. 2. Labs reviewed - weekly, CBC, CMP on Tuesday. 3. Imaging - none. 4. Consults - none. 5. IV - none. His fluids are oral and encouraged. 6. Diet - no change. 7. Activity - with PT gradually try to increase in a safe manner. 8. Discharge planning - he is expecting home. 9. Dr. James gone until 04/12. Dr. Martino covering and the patient and family aware. [facility]
[2018-04-06] MEDS: LIPITOR PO SCH (20:23)
[2018-04-06] MEDS: LEVEMIR SUBCUT SCH (20:25)
[2018-04-07] MEDS: KEPPRA PO SCH ×2 (04:39→16:40)
[2018-04-07] MEDS: PROTONIX PO SCH (06:05)
[2018-04-07] MEDS: SYNTHROID PO SCH (06:05)
[2018-04-07] MEDS: LASIX TAB PO SCH (06:05)
[2018-04-07] MEDS: HUMULIN R SUBCUT SCH ×3 (07:10→16:39)
[2018-04-07] MEDS: COREG PO SCH ×2 (08:02→16:40)
[2018-04-07] MEDS: COZAAR PO SCH (08:02)
[2018-04-07] MEDS: CORDARONE PO SCH (08:02)
[2018-04-07] MEDS: ZYLOPRIM PO SCH (08:02)
[2018-04-07] MEDS: PROCARDIA XL PO SCH (08:03)
[2018-04-07] MEDS: NYSTOP POWDER TP SCH ×2 (08:03→21:04)
[2018-04-07] MEDS: NON-FORMULARY MEDICATION (Calcitriol [Calcitriol] 0.25 MCG) PO SCH (08:03)
[2018-04-07] MEDS: ALDACTONE PO SCH (08:03)
[2018-04-07] MEDS: ELIQUIS PO SCH ×2 (08:04→21:03)
[2018-04-07] MEDS: LIPITOR PO SCH (21:03)
[2018-04-07] MEDS: LEVEMIR SUBCUT SCH (21:03)
[2018-04-08] MEDS: KEPPRA PO SCH ×2 (04:49→18:04)
[2018-04-08] MEDS: SYNTHROID PO SCH (05:53)
[2018-04-08] MEDS: LASIX TAB PO SCH (05:54)
[2018-04-08] MEDS: PROTONIX PO SCH (05:54)
[2018-04-08] MEDS: HUMULIN R SUBCUT SCH ×3 (08:00→17:56)
[2018-04-08] MEDS: PROCARDIA XL PO SCH (08:29)
[2018-04-08] MEDS: COREG PO SCH ×2 (08:29→18:04)
[2018-04-08] MEDS: COZAAR PO SCH (08:29)
[2018-04-08] MEDS: ALDACTONE PO SCH (08:29)
[2018-04-08] MEDS: CORDARONE PO SCH (08:37)
[2018-04-08] MEDS: NON-FORMULARY MEDICATION (Calcitriol [Calcitriol] 0.25 MCG) PO SCH (09:57)
[2018-04-08] MEDS: ELIQUIS PO SCH ×2 (10:01→21:04)
[2018-04-08] MEDS: NYSTOP POWDER TP SCH ×2 (10:31→21:03)
[2018-04-08] MEDS: ZYLOPRIM PO SCH (10:32)
[2018-04-08] MEDS: LEVEMIR SUBCUT SCH (20:08)
[2018-04-08] MEDS: LIPITOR PO SCH (21:04)
[2018-04-09] MEDS: KEPPRA PO SCH ×2 (04:47→17:42)
[2018-04-09] MEDS: LASIX TAB PO SCH (06:07)
[2018-04-09] MEDS: SYNTHROID PO SCH (06:07)
[2018-04-09] MEDS: PROTONIX PO SCH (06:07)
[2018-04-09] MEDS: COZAAR PO SCH (08:39)
[2018-04-09] MEDS: ZYLOPRIM PO SCH (08:39)
[2018-04-09] MEDS: CORDARONE PO SCH (08:39)
[2018-04-09] MEDS: ALDACTONE PO SCH (08:39)
[2018-04-09] MEDS: COREG PO SCH ×2 (08:39→17:42)
[2018-04-09] MEDS: NYSTOP POWDER TP SCH ×2 (08:40→21:24)
[2018-04-09] MEDS: PROCARDIA XL PO SCH (08:40)
[2018-04-09] MEDS: NON-FORMULARY MEDICATION (Calcitriol [Calcitriol] 0.25 MCG) PO SCH (08:48)
[2018-04-09] MEDS: HUMULIN R SUBCUT SCH ×3 (08:52→17:43)
[2018-04-09] MEDS: ELIQUIS PO SCH ×2 (08:54→21:23)
[2018-04-09] MEDS: LEVEMIR SUBCUT SCH (20:00)
[2018-04-09] MEDS: LIPITOR PO SCH (21:24)
[2018-04-10] MEDS: KEPPRA PO SCH ×2 (04:19→16:53)
[2018-04-10] MEDS: SYNTHROID PO SCH (05:53)
[2018-04-10] MEDS: LASIX TAB PO SCH (05:53)
[2018-04-10] MEDS: PROTONIX PO SCH (05:53)
[2018-04-10] MEDS: ZYLOPRIM PO SCH (08:23)
[2018-04-10] MEDS: CORDARONE PO SCH (08:23)
[2018-04-10] MEDS: ALDACTONE PO SCH (08:23)
[2018-04-10] MEDS: COREG PO SCH ×2 (08:23→16:53)
[2018-04-10] MEDS: PROCARDIA XL PO SCH (08:23)
[2018-04-10] MEDS: COZAAR PO SCH (08:24)
[2018-04-10] MEDS: NYSTOP POWDER TP SCH ×2 (08:25→20:20)
[2018-04-10] MEDS: NON-FORMULARY MEDICATION (Calcitriol [Calcitriol] 0.25 MCG) PO SCH (08:27)
[2018-04-10] MEDS: ELIQUIS PO SCH ×2 (08:28→20:19)
[2018-04-10] MEDS: HUMULIN R SUBCUT SCH ×3 (08:28→18:07)
[2018-04-10] MEDS ORDERED: DRISDOL PO SCH (09:00)
[2018-04-10] MEDS: LIPITOR PO SCH (20:19)
[2018-04-10] MEDS: LEVEMIR SUBCUT SCH (20:20)
[2018-04-11] MEDS: KEPPRA PO SCH ×2 (03:59→18:17)
[2018-04-11] MEDS: SYNTHROID PO SCH (05:57)
[2018-04-11] MEDS: PROTONIX PO SCH (05:57)
[2018-04-11] MEDS: LASIX TAB PO SCH (05:57)
[2018-04-11] MEDS: ALDACTONE PO SCH (08:41)
[2018-04-11] MEDS: COZAAR PO SCH (08:42)
[2018-04-11] MEDS: CORDARONE PO SCH (08:43)
[2018-04-11] MEDS: COREG PO SCH ×2 (08:43→16:59)
[2018-04-11] MEDS: PROCARDIA XL PO SCH (08:44)
[2018-04-11] MEDS: ELIQUIS PO SCH ×2 (08:45→20:23)
[2018-04-11] MEDS: ZYLOPRIM PO SCH (08:47)
[2018-04-11] MEDS: NYSTOP POWDER TP SCH ×2 (09:38→21:54)
[2018-04-11] MEDS: NON-FORMULARY MEDICATION (Calcitriol [Calcitriol] 0.25 MCG) PO SCH (09:39)
[2018-04-11] MEDS: HUMULIN R SUBCUT SCH ×3 (09:49→17:02)
[2018-04-11] MEDS: LIPITOR PO SCH (20:23)
[2018-04-11] MEDS: LEVEMIR SUBCUT SCH (21:54)
[2018-04-12] MEDS: KEPPRA PO SCH (05:36)
[2018-04-12] MEDS: LASIX TAB PO SCH (05:37)
[2018-04-12] MEDS: SYNTHROID PO SCH (05:37)
[2018-04-12] MEDS: PROTONIX PO SCH (05:37)
[2018-04-12 06:33] VITALS: BP 131/81; TEMP 98.4
[2018-04-12] MEDS: ALDACTONE PO SCH (09:24)
[2018-04-12] MEDS: PROCARDIA XL PO SCH (09:24)
[2018-04-12] MEDS: ZYLOPRIM PO SCH (09:25)
[2018-04-12] MEDS: COZAAR PO SCH (09:25)
[2018-04-12] MEDS: CORDARONE PO SCH (09:25)
[2018-04-12] MEDS: COREG PO SCH (09:25)
[2018-04-12] MEDS: NON-FORMULARY MEDICATION (Calcitriol [Calcitriol] 0.25 MCG) PO SCH (09:26)
[2018-04-12] MEDS: HUMULIN R SUBCUT SCH ×2 (09:26→12:46)
[2018-04-12] MEDS: NYSTOP POWDER TP SCH (09:27)
[2018-04-12] MEDS: ELIQUIS PO SCH (09:28)
== END 2018-04-12 16:49 | disposition home or self-care (01) | DRG 149 ==
LOC: MEDSURG B 14:03
PROVIDERS: ADMIT Family Medicine; ATTEND Family Medicine
DX: R42 Dizziness and giddiness (principal); I50.23 Acute on chronic systolic (congestive) heart failure; I42.9 Cardiomyopathy, unspecified; N39.0 Urinary tract infection, site not specified; R53.83 Other fatigue; R06.02 Shortness of breath; W19.XXXA Unspecified fall, initial encounter; K59.00 Constipation, unspecified; R27.0 Ataxia, unspecified; E16.2 Hypoglycemia, unspecified
CPT/HCPCS: 36415; 80053; 82962; 85025; 87081; 97802

== ENCOUNTER 2018-04-18 11:33 | Outpatient (CLI) | END 2018-04-18 11:34 | disposition home or self-care (01) | LOC: NONPT 11:33 | PROVIDERS: ATTEND Family Medicine | DX: I50.9 Heart failure, unspecified (principal) | CPT/HCPCS: 80053; 85025 ==

== ENCOUNTER 2018-07-25 11:52 | Outpatient (CLI) ==
[2018-07-25 12:13] VITALS: BMI 32.5
== END 2018-07-25 11:53 | disposition critical access hospital (66) ==
LOC: AMBL 11:52
PROVIDERS: ATTEND Emergency Medicine
DX: R06.03 Acute respiratory distress (principal)

== ENCOUNTER 2018-07-25 12:06 | Emergency (ER) | payer OTHER ==
[2018-07-25 12:13] VITALS: BP 113/85; TEMP 97; BMI 32.5
--- NOTE | 2018-07-25 12:41 | ED.PDOC ---
General ED Provider: Dr. SUSHMA KENDALL Chief Complaint: Shortness of Air Stated Complaint: Short of breath, near syncopal attack. Was at office of Dr James for routine check when he suddenly developed sensation of dizziness and then syncope. Emesis earlier today after eating breakfast.Daughter states finesse refluxes and gets dyspepsia Time Seen by Physician: 12:15 Mode of Arrival: Ambulance Information Source: Patient Exam Limitations: No limitations Primary Care Provider: EDISON JAMES Referred to ED by: Telephone referral Nursing and Triage Documentation Reviewed and Agree: Yes Does patient meet sepsis criteria?: No If yes, has appropriate treatment been initiated?: No System Inflammatory Response Syndrome: Not Applicable Sepsis Protocol: For patient's 13 years and over: Temp is 96.8 and below OR 101 and greater Pulse >90 BPM Resp >20/minute Acutely Altered Mental Status Are patient's symptoms suggestive of a new infection, such as: -Pneumonia -Skin, Soft Tissue -Endocarditis -UTI -Bone, Joint Infection -Implantable Device -Acute Abdominal Infection -Wound Infection -Meningitis -Blood Stream Catheter Infection -Unknown Respiratory Complaint Exam - Shortness of Air Complaint/Exam Symptoms Are: Resolved Timing: Constant, Intermittent Initial Severity: Moderate Current Severity: Mild Character: Reports: Dyspnea on exertion Aggravating: Reports: Allergens, Deep breaths Alleviating: Reports: Bronchodilators, Upright position Associated Signs and Symptoms: Reports: Cough, Wheezing Related History: Reports: Similar episode History of Healthcare-Acquired Pneumonia: No Pulmonary Embolism Risk Factors: Reports: None Cardiac Risk Factors: Reports: None Pseudomonas Risk Factors: Reports: None Tuberculosis Risk Factors: Reports: None Recent Stress Test: No Recent Echo/LV Function: No Respiratory Distress: None Stridor Present: No Tracheal Deviation: No Subcutaneous Emphysema: No Accessory Muscle Use: No Retractions: Not Present Diminished Breath Sounds: Yes Prolonged Expiratory Phase: No Unable to Speak Full Sentences: No Fatigue: Yes Leg Swelling: Yes Ana M's Sign Present: No Grunting Respirations: No Kussmaul Respirations: No Review of Systems - Review Of Systems Constitutional: Reports: Weakness, Loss of appetite Eyes: Reports: No symptoms Ears, Nose, Mouth, Throat: Reports: No symptoms Respiratory: Reports: Cough, Short of air Cardiac: Reports: Irregular heart rate GI: Reports: Difficulty swallowing, Nausea, Poor appetite : Reports: No symptoms Musculoskeletal: Reports: No symptoms Skin: Reports: No symptoms Neurological: Reports: No symptoms Endocrine: Reports: No symptoms Hematologic/Lymphatic: Reports: No symptoms All Other Systems: Reviewed and Negative Past Medical History - Past Medical History Previously Healthy: No Endocrine: Reports: DM 2 Cardiovascular: Reports: CAD, Hypertension Respiratory: Reports: None Hematological: Reports: None Gastrointestinal: Reports: None Genitourinary: Reports: None Neuro/Psych: Reports: None Musculoskeletal: Reports: None Cancer: Reports: None - Surgical History General Surgical History: Reports: None, Pacemaker - Family History Family History: Reports: None - Social History Smoking Status: Former smoker Hx Substance Use: No Alcohol Screening: None Physical Exam - Physical Exam Appearance: Ill-appearing, Thin Ill-appearing: Moderate Pain Distress: Mild Eyes: BARBARA, EOMI, Conjunctiva clear ENT: Ears normal, Nose normal, Oropharynx normal Neck: Supple Respiratory: Breath sounds diminished, Crackles Cardiovascular: RRR, Pulses normal, No rub, No murmur GI/: Soft, No masses, Bowel sounds normal, No Organomegaly, Tender (mid epigastrium) Musculoskeletal: Normal strength, ROM intact, No edema, No calf tenderness Skin: Warm, Dry, Normal color Neurological: Sensation intact, Motor intact, Reflexes intact, Cranial nerves intact, Alert, Oriented Psychiatric: Affect appropriate, Mood appropriate Interpretation - Radiology Interpretation Exam Interpreted: CT Scan (Chest-cardiomegaly/chf changes/pericardial effusion /) Physician Notification - Case Discussed Physician Notified: Dr James Time of Notification: 17:30 (in to see pt. transfer to [facility] direct admit) Critical Care Note - Critical Care Note Total Time (mins): 60 Course - Course Hematology/Chemistry: 07/25/18 12:45 07/25/18 12:45 Orders, Labs, Meds: Lab Review 07/25/18 07/25/18 07/25/18 12:45 12:45 12:45 WBC 8.15 RBC 4.20 L Hgb 13.3 L Hct 39.2 L MCV 93.3 MCH 31.7 H MCHC 33.9 RDW Coeff of Valente 18.2 H Plt Count 187 Immature Gran % (Auto) 0.5 Neut % (Auto) 67.8 Lymph % (Auto) 18.7 Eaton % (Auto) 6.5 Eos % (Auto) 5.4 Baso % (Auto) 1.1 Immature Gran # (Auto) 0.0 Neut # (Auto) 5.5 Lymph # (Auto) 1.5 Eaton # (Auto) 0.5 Eos # (Auto) 0.4 Baso # (Auto) 0.1 Puncture Site O2 Saturation ABG pH ABG pCO2 ABG pO2 ABG HCO3 ABG Total CO2 ABG Base Excess O2 Delivery Device Oxygen Liter Flow Sodium 133.1 L Potassium 4.15 Chloride 98.3 Carbon Dioxide 25.1 Anion Gap 13.85 BUN 29.1 H Creatinine 1.94 H Estimated GFR (MDRD) 35.00 BUN/Creatinine Ratio 15.00 Glucose 134.4 H Calcium 9.02 Magnesium 2.07 Total Bilirubin 1.85 H AST 91.0 H ALT 54.8 H Alkaline Phosphatase 104.2 Troponin I 0.035 NT-Pro-B Natriuret Pep Total Protein 6.07 L Albumin 3.55 Globulin 2.52 Albumin/Globulin Ratio 1.40 Urine Color Urine Clarity Urine pH Ur Specific [place] Urine Protein Urine Glucose (UA) Urine Ketones Urine Blood Urine Nitrite Urine Bilirubin Urine Urobilinogen Ur Leukocyte Esterase Urine Microscopic RBC Urine Microscopic WBC Ur Squamous Epith Cells Urine Bacteria Influ A Molecular Assay Negative by naat Influ B Molecular Assay Negative by naat 07/25/18 07/25/18 07/25/18 12:45 14:01 16:32 WBC RBC Hgb Hct MCV MCH MCHC RDW Coeff of Valente Plt Count Immature Gran % (Auto) Neut % (Auto) Lymph % (Auto) Eaton % (Auto) Eos % (Auto) Baso % (Auto) Immature Gran # (Auto) Neut # (Auto) Lymph # (Auto) Eaton # (Auto) Eos # (Auto) Baso # (Auto) Puncture Site Rbrach O2 Saturation 93.0 L ABG pH 7.361 ABG pCO2 45.2 H ABG pO2 72.0 L ABG HCO3 25.6 ABG Total CO2 27 ABG Base Excess 0 O2 Delivery Device Nc Oxygen Liter Flow 2.00 Sodium Potassium Chloride Carbon Dioxide Anion Gap BUN Creatinine Estimated GFR (MDRD) BUN/Creatinine Ratio Glucose Calcium Magnesium Total Bilirubin AST ALT Alkaline Phosphatase Troponin I NT-Pro-B Natriuret Pep 7530.000 H Total Protein Albumin Globulin Albumin/Globulin Ratio Urine Color Yellow Urine Clarity Cloudy Urine pH 5.0 Ur Specific [place] 1.020 Urine Protein Trace Urine Glucose (UA) Negative Urine Ketones Negative Urine Blood Trace-intact Urine Nitrite Negative Urine Bilirubin 1+ Urine Urobilinogen 1.0 Ur Leukocyte Esterase 1+ Urine Microscopic RBC 2-5 Urine Microscopic WBC 30-50 Ur Squamous Epith Cells 2-5 Urine Bacteria 4+ Influ A Molecular Assay Influ B Molecular Assay Orders Category Date Time Status ABG DRAW REQUEST Stat CARDIO 07/25/18 14:02 Completed EKG-(ED ONLY) Stat CARDIO 07/25/18 12:33 Completed ABG Stat LAB 07/25/18 14:01 Completed CBC W/ AUTO DIFF Stat LAB 07/25/18 12:45 Completed CMP [COMPREHENSIVE METABOLIC PANEL] Stat LAB 07/25/18 12:45 Completed FLU A & B MOLECULAR [FLU A/B MOLECULAR] Stat LAB 07/25/18 12:45 Completed MAGNESIUM Stat LAB 07/25/18 12:45 Completed NT-PROBNP Stat LAB 07/25/18 12:45 Completed TROPONIN I Stat LAB 07/25/18 12:45 Completed UA [URINALYSIS C & S IF INDICATED] Stat LAB 07/25/18 16:32 Completed URINE CULTURE Stat LAB 07/25/18 16:32 Completed Famotidine Inj [Pepcid] MEDS 07/25/18 13:18 Discontinued 20 mg IVP ONCE STA Furosemide [Lasix] MEDS 07/25/18 15:27 Discontinued 20 mg IVP ONCE STA Ondansetron HCl/Pf [Zofran 4 mg/2 ml] MEDS 07/25/18 13:17 Discontinued 4 [address] IVP ONCE [address]A CT ABDOMEN/PELVIS WO CONTRAST Stat RADS 07/25/18 13:[address] CHEST W/O CONTRAST Stat RADS 07/25/18 12:[address] HEAD W/O CONTRAST Stat RADS 07/25/18 12:38 Completed Medications Discontinued Medications Generic Name Dose Route Start Last Admin Trade Name Freq PRN Reason Stop Dose Admin Famotidine 20 mg 07/25/18 13:18 07/25/18 13:27 Pepcid IVP 07/25/18 13:19 20 mg ONCE STA Administration Furosemide 20 mg 07/25/18 15:27 07/25/18 15:56 Lasix IVP 07/25/18 15:28 20 mg ONCE STA Administration Ondansetron HCl 4 mg 07/25/18 13:17 07/25/18 13:26 Zofran 4 Mg/2 Ml IVP 07/25/18 13:18 4 mg ONCE STA Administration Vital Signs: Temp Pulse Resp BP Pulse Ox 07/25/18 12:07 97.0 F L 75 20 113/85 96 Departure - Departure Time of Disposition: 17:30 Disposition: TSF SHORT-TRM HOSP Discharge Problem: Syncope, CHF (congestive heart failure), Postprandial vomiting Instructions: Heart Failure (ED), Syncope (ED) Condition: Pt referred to PMD for follow-up: Yes IPMP verified?: No Allergies/Adverse Reactions: Allergies Penicillins Adverse Reaction (Verified 07/25/18 12:12) Home Medications: Ambulatory Orders Atorvastatin Calcium [Lipitor] 40 mg PO BEDTIME 11/13/17 Apixaban [Eliquis] 5 mg PO Q12H 03/29/18 Calcitriol 0.25 mcg PO DAILY 03/29/18 Carvedilol [Coreg] 6.25 mg PO BID 03/29/18 Furosemide 20 mg PO DAILY 03/29/18 Amiodarone HCl [Pacerone] 200 mg PO DAILY #30 tablet 04/12/18 Levothyroxine Sodium 50 mcg PO DAILY #30 tablet 04/12/18 Losartan Potassium [Cozaar] 25 mg PO DAILY #30 tablet 04/12/18 Pantoprazole Sodium [Protonix] 20 mg PO DAILY 04/12/18 Spironolactone [Aldactone] 12.5 mg PO DAILY #15 tablet 04/12/18 Ergocalciferol (Vitamin D2) [Vitamin D2] 50,000 unit PO WEEKLY 07/25/18 Disposition Discussed With: Patient, Family
[2018-07-25] MEDS ORDERED: ZOFRAN 4 MG/2 ML IVP STA (13:17)
[2018-07-25] MEDS ORDERED: PEPCID IVP STA (13:18)
--- NOTE | 2018-07-25 13:26 | CT ---
EXAM: CT of the head without contrast History: Dizziness, near-syncope Comparison: Head CT 11/13/2017 Technique: Multiplanar CT images through the head were obtained without the administration of IV con trast Findings: The visualized paranasal sinuses and mastoid air cells are clear in general. No acute meng varial abnormalities. Intracranially the ventricular and cisternal spaces are stable. Midline shift and no hydrocephalus. Stable area of encephalomalacia within the right frontal lobe compatible with old infarction. There are new low density changes within the left frontal lobe. Stable old lacunar infarction within the right cerebellum. No acute intracranial hemorrhage or abnormal extraaxial fluid collections. Stable prominent contour of the basilar artery. Impression: 1. No acute intracranial hemorrhage. 2. New low density changes within the left frontal lobe probably represent remote or subacute infarc tion. Underlying neoplastic etiology is not excluded. Recommend correlation with brain MRI with and without contrast.
--- NOTE | 2018-07-25 13:30 | CT ---
EXAM: CT chest without contrast HISTORY: Shortness of breath, feels congested COMPARISON: None TECHNIQUE: CT chest performed without intravenous contrast. Coronal and sagittal reformatted images obtained FINDINGS: Thyroid and thoracic inlet appear normal. Heart moderately enlarged. Left-sided cardiac pacer. Trace pericardial effusion anteriorly. Coronary calcifications. Aorta normal in caliber. M ild atherosclerosis. Stomach esophagus unremarkable. Evaluation for lymphadenopathy limited without contrast. No lymphadenopathy identified. Liver diffusely increased in density. Increased attenuat ion in the gallbladder. No acute abnormalities of the bones. Degenerative change in the spine. Donaldo tral airway patent. Multifocal bilateral ground-glass infiltrates. Bilateral associated interlobula r septal thickening. No pleural effusion. No pneumothorax. Granulomatous calcification. IMPRESSION: 1. Cardiomegaly. Multifocal bilateral ground-glass infiltrates and bilateral interlobular septal th ickening. Findings may be due to edema and/or pneumonia. At least a component of edema is likely gi kate the septal thickening. 2. Trace pericardial effusion. 3. Coronary calcifications. 4. Cardiac pacer . 5. Dense liver, a finding that can be seen in amiodarone toxicity and iron deposition disorders, suc h as hemochromatosis/hemosiderosis, among other etiologies.
--- NOTE | 2018-07-25 14:18 | CT ---
EXAM: CT abdomen pelvis without contrast HISTORY: Nausea, vomiting, elevated transaminase COMPARISON: None TECHNIQUE: CT abdomen pelvis performed without intravenous contrast. Coronal and sagittal reformatt ed images obtained FINDINGS: Please refer to separate port CT chest right findings in the lower chest. No free air. N o acute abnormalities of the bones. Degenerative change in the spine. Liver diffusely increased in density. Increased attenuation in the gallbladder. Pancreas unremarkable. Spleen unremarkable. Ad renals unremarkable. No hydronephrosis or nephrolithiasis. No calculi visualized in normal course o f the ureters. Bladder only mildly distended and poorly evaluated, grossly unremarkable. Prostate n ormal in size with calcification. Small bilateral fat containing inguinal hernia. Aorta normal in c aliber. Mild atherosclerosis. No lymphadenopathy or ascites. Stomach unremarkable. No dilated loo ps small bowel. Appendix appears normal. Colonic diverticulosis. Small fat-containing periumbilica l hernia. No inflammatory stranding identified in the abdomen or pelvis. IMPRESSION: 1. No acute inflammatory process identified in the abdomen pelvis. 2. Dense liver, a finding that can be seen in amiodarone toxicity and iron deposition disorders, suc h as hemochromatosis/hemosiderosis, among other etiologies. 3. Increase layering density in the gallbladder is favored to relate to vicarious excretion of contr ast. Recommend correlation for recent contrast administration. Cholelithiasis and/or gallbladder sl udge possible. 4. Colonic diverticulosis.
[2018-07-25] MEDS ORDERED: LASIX IVP STA (15:27)
== END 2018-07-25 20:08 | disposition short-term general hospital (02) ==
LOC: ED 12:06
DX: R55 Syncope and collapse (principal); I50.9 Heart failure, unspecified; R11.10 Vomiting, unspecified; R06.02 Shortness of breath; E11.9 Type 2 diabetes mellitus without complications; I25.10 Atherosclerotic heart disease of native coronary artery without angina pectoris; I10 Essential (primary) hypertension; Z95.0 Presence of cardiac pacemaker; Z79.01 Long term (current) use of anticoagulants; Z79.899 Other long term (current) drug therapy
CPT/HCPCS: 36415; 80053; 81001; 82803; 83735; 83880; 84484; 85025; 87086; 87186; 87502; 93005; 93010; 96374; 96375; 99285

== ENCOUNTER 2018-07-25 20:10 | Outpatient (CLI) ==
[2018-07-25 12:13] VITALS: BMI 32.5
== END 2018-07-25 20:34 | disposition short-term general hospital (02) ==
LOC: AMBL 20:10
PROVIDERS: ATTEND Internal Medicine Geriatric Medicine
DX: R55 Syncope and collapse (principal); R53.1 Weakness; R39.9 Unspecified symptoms and signs involving the genitourinary system